=== PATIENT | male | born 1975 | race Two or more races ===

== ENCOUNTER → 2020-08-25 | Outpatient (CLI) | payer OTHER ==
--- NOTE | 2020-08-25 09:42 | KCIC ---
EXAM: CT coronary artery calcium screening; radiologist over read. HISTORY: Coronary artery calcium screening. TECHNIQUE: Computed tomographic images of the chest were obtained without contrast. Multiplanar refor matting was performed. *One or more of the following individualized dose reduction techniques were utilized for this examina tion: 1. Automated exposure control. 2. Adjustment of the mA and/or kV according to patient size. 3. Use of iterative reconstruction technique. COMPARISON: None. FINDINGS: The heart is normal in size. The aorta is normal in caliber. There is no infiltrate, pleura l effusion or pneumothorax. There is no suspicious or nodule. There is no acute finding involving the upper abdomen or osseous structures. IMPRESSION: 1. Please refer to separate coronary calcium score report. 2. No significant incidental thoracic finding. Electronically signed by: Pebbles Nichole MD (08/25/2020 9:39 AM) [id number]
== END ==
LOC: KCIC CT 09:13
PROVIDERS: ATTEND Nurse Practitioner
DX: R07.9 Chest pain, unspecified (principal); R53.83 Other fatigue
CPT/HCPCS: 75571